=== PATIENT | female | born 1950 | race Caucasian/White ===

== ENCOUNTER → 2017-06-01 | Outpatient (CLI) | payer OTHER, MEDICARE | LOC: FIMAGING 09:37 | PROVIDERS: ATTEND Internal Medicine Hematology & Oncology | DX: Z12.31 Encounter for screening mammogram for malignant neoplasm of breast (principal); Z85.3 Personal history of malignant neoplasm of breast ==

== ENCOUNTER → 2017-06-22 | Outpatient (CLI) | payer OTHER, MEDICARE | LOC: CIMAGING 12:36 | PROVIDERS: ATTEND Internal Medicine Hematology & Oncology | DX: N63.10 Unspecified lump in the right breast, unspecified quadrant (principal); Z85.3 Personal history of malignant neoplasm of breast; Z85.71 Personal history of Hodgkin lymphoma | CPT/HCPCS: 76641-PO ==

== ENCOUNTER → 2017-12-23 | Outpatient (CLI) | payer OTHER, MEDICARE | LOC: CIMAGING 12:33 | PROVIDERS: ATTEND Internal Medicine Hematology & Oncology | DX: R92.8 Other abnormal and inconclusive findings on diagnostic imaging of breast (principal) | CPT/HCPCS: 76641-PO ==

== ENCOUNTER → 2017-12-29 | Outpatient (CLI) | payer OTHER, MEDICARE | LOC: CIMAGING 13:38 | PROVIDERS: ATTEND Internal Medicine Hematology & Oncology | DX: N63.32 Unspecified lump in axillary tail of the left breast (principal); Z85.3 Personal history of malignant neoplasm of breast; Z85.72 Personal history of non-Hodgkin lymphomas | CPT/HCPCS: 76641-PO ==

== ENCOUNTER → 2018-06-05 | Outpatient (CLI) | payer OTHER, MEDICARE | LOC: CIMAGING 10:35 | DX: Z12.31 Encounter for screening mammogram for malignant neoplasm of breast (principal); Z85.3 Personal history of malignant neoplasm of breast ==